=== PATIENT | female | born 2000 | race Caucasian/White ===

== ENCOUNTER → 2024-07-29 | Outpatient (CLI) | payer OTHER, SELFPAY ==
[2024-07-29 16:41] LABS: Basophils # (Auto) 0.1 Thou/mm3 (0.0-0.2); Basophils % (Auto) 1 % (0-2.5); Eosinophils # (Auto) 0.2 Thou/mm3 (0.0-0.5); Eosinophils % (Auto) 2 % (0-10); Hematocrit 37.4 % (36.0-46.0); Hemoglobin 12.5 g/dL (12.0-16.0); Immature Granulocytes % (Auto) 0 % (0-0); Immature Granulocytes Auto 0.03 Thou/mm3 (0.00-0.00); Lymphocytes # (Auto) 3.3 Thou/mm3 (1.0-4.8); Lymphocytes % (Auto) 33 % (10-50); Mean Corpuscular HGB Conc 33.4 g/dl (31.0-37.0); Mean Corpuscular Hemoglobin 27.9 pg (25.0-35.0); Mean Corpuscular Volume 84 fL (80-100); Monocytes # (Auto) 0.5 Thou/mm3 (0.0-0.8); Monocytes % (Auto) 5 % (0-12); Neutrophils # (Auto) 5.8 Thou/mm3 (1.8-7.7); Neutrophils % (Auto) 58 % (37-80); Nucleated Red Blood Cell % 0 /100 WBC (0); Platelet Count 583 Thou/mm3 (140-440); Red Blood Count 4.48 Miln/mm3 (4.00-5.20)
[2024-07-29 16:57] LABS: Glucose Estimated Average 97 mg/dL (80-131)
[2024-07-29 17:02] LABS: Follicle Stimulating Hormone < 0.30 mIU/mL (See Note)
[2024-07-29 17:10] LABS: Alanine Aminotransferase 17 U/L (10-49); Albumin, Serum 4.5 gm/dL (3.5-5.0); Albumin/Globulin Ratio 1.7 (1.2-2.2); Alkaline Phosphatase 84 U/L (46-116); Anion Gap 9 (7-16); Aspartate Amino Transferase 19 U/L (0-34); BUN/Creatinine Ratio 18 Ratio (12-20); Beta HCG,Quantitative < 1 mIU/mL (<5.0); Bilirubin,Total 0.4 mg/dL (0.3-1.2); Blood Urea Nitrogen 11 mg/dL (9-23); Calcium 9.9 mg/dL (8.3-10.6); Calcium (Corrected) 9.9 mg/dL (8.5-10.1); Carbon Dioxide 25.2 mMol/L (20.0-31.0); Chloride 106 mMol/L (98-107); Creatinine (Component) 0.6 mg/dL (0.6-1.3); Free T4 (Free Thyroxine) 1.26 ng/dL (0.89-1.76); Globulin 2.7 gm/dL (2.3-3.5); Glucose 104 mg/dL (74-106); Osmolality,Calculated 278 (275-295); Potassium 4.4 mMol/L (3.4-5.1); Sodium 140 mMol/L (136-145); Thyroid Stimulating Hormone 1.55 uIU/mL (0.55-4.78); Total Protein 7.2 gm/dL (5.7-8.2); eGFR > 60 See Note
[2024-08-11 06:40] LABS: DHEA Sulfate* 28 mcg/dL (18-391); Estrogen, Total, Serum* 50 pg/mL; Immunoglobulin A 138 mg/dL (47-310); Luteinizing Hormone* <0.2 mIU/mL; Progesterone,LC/MS* <0.1 ng/mL; Prolactin* 14.8 ng/mL; Testosterone, Free,Dialysis 0.2 pg/mL (0.1-6.4); Testosterone, Total, Dialysis 6 ng/dL (2-45); tTG Ab, IgA <1.0 U/mL
== END | disposition home or self-care (01) ==
LOC: COPL 14:32
PROVIDERS: PCP Nurse Practitioner Family; Referring Provider Specialist; Visit Provider Specialist
DX: E28.2 Polycystic ovarian syndrome (principal); R10.9 Unspecified abdominal pain
CPT/HCPCS: 36415; 80053; 82627; 82672; 82784; 83001; 83002; 83036; 84144; 84146; 84402; 84403; 84439; 84443; 84702; 85025; 86364

== ENCOUNTER 2024-09-29 08:45 | Day surgery (SDC) | payer OTHER, SELFPAY ==
--- NOTE | 2024-09-25 19:14 | ESHP_ITS ---
RE: BARBARA MESSER : 2000 DATE OF ADMISSION: 09/29/2024 HISTORY OF PRESENT ILLNESS: This is a 24-year-old, 0, with chronic abdominal and pelvic pain who presents for diagnostic laparoscopy to rule out endometriosis. ALLERGIES: SULFA AND STEROIDS. MEDICATIONS: 1. Buspirone 5 mg one p.o. daily. 2. Quetiapine 25 mg one p.o. daily. 3. Isibloom, control pill 1 p.o. daily. 4. Clonazepam 0.5 mg one p.o. daily p.r.n. anxiety. 5. Paroxetine 40 mg one p.o. daily. PAST MEDICAL HISTORY: Morbid obesity, borderline chronic hypertension, irritable bowel syndrome. SOCIAL HISTORY: Denies any alcohol, drug use, or smoking. PAST SURGICAL HISTORY: Colonoscopy, EGD. FAMILY HISTORY: Denies. REVIEW OF SYSTEMS: She denies any chest pain, palpitations, cough, fever, shortness of breath, or lower extremity pain. PHYSICAL EXAMINATION: Vital Signs: Blood pressure 150/90, heart rate 88, respirations 18, temperature 98.6. HEENT: Oropharynx and sclerae are clear. Lungs: Clear to auscultation bilaterally. Heart: Regular rate and rhythm. Abdomen: No scars noted. Nontender. Extremities: Nontender. Skin: No gross rashes or lesion. Neurologic: No focal deficit. ASSESSMENT AND PLAN: Chronic pelvic pain. Plan diagnostic laparoscopy. Possible fulguration of endometriosis. Informed consent was obtained. The patient was made aware of the risks, complications, alternatives, and benefits of the proposed procedure and she agrees. She is aware of the risk of injury to bowel, bladder, adjacent organs, blood clots in the deep veins of the legs and lungs, anesthesia complications, reoperation to repair injury to internal organs, injury to the vessels to the abdominal wall, hematoma, abscess, wound infection, wound dehiscence, pelvic infection, reoperation to repair injury to internal organs, anesthesia complications, the possibility that a laparotomy needs to be performed to complete the procedure or control bleeding, and the possibility the procedure is unable to be completed due to technical difficulties or severe adhesions. DT: 17:57:36 TT: 19:12:00 Ref: [id number] - TID: [id number] [facility]
[2024-09-28 08:14] VITALS: BMI 44.9
[2024-09-28 09:23] LABS: Basophils # (Auto) 0.1 Thou/mm3 (0.0-0.2); Basophils % (Auto) 1 % (0-2.5); Eosinophils # (Auto) 0.4 Thou/mm3 (0.0-0.5); Eosinophils % (Auto) 4 % (0-10); Hematocrit 39.2 % (36.0-46.0); Hemoglobin 12.8 g/dL (12.0-16.0); Immature Granulocytes % (Auto) 0 % (0-0); Immature Granulocytes Auto 0.02 Thou/mm3 (0.00-0.00); Lymphocytes # (Auto) 2.1 Thou/mm3 (1.0-4.8); Lymphocytes % (Auto) 22 % (10-50); Mean Corpuscular HGB Conc 32.7 g/dl (31.0-37.0); Mean Corpuscular Hemoglobin 27.9 pg (25.0-35.0); Mean Corpuscular Volume 86 fL (80-100); Monocytes # (Auto) 0.4 Thou/mm3 (0.0-0.8); Monocytes % (Auto) 4 % (0-12); Neutrophils # (Auto) 6.6 Thou/mm3 (1.8-7.7); Neutrophils % (Auto) 69 % (37-80); Nucleated Red Blood Cell % 0 /100 WBC (0); Platelet Count 488 Thou/mm3 (140-440); RDW Standard Deviation 42.6 fL (36.4-46.3); Red Blood Count 4.58 Miln/mm3 (4.00-5.20); White Blood Count 9.6 Thou/mm3 (3.6-11.0)
[2024-09-28 09:30] LABS: Prothrombin Time 10.6 Seconds (9.0-12.2)
[2024-09-28 09:38] LABS: Alanine Aminotransferase 16 U/L (10-49); Albumin, Serum 4.4 gm/dL (3.5-5.0); Albumin/Globulin Ratio 1.5 (1.2-2.2); Alkaline Phosphatase 78 U/L (46-116); Anion Gap 11 (7-16); Aspartate Amino Transferase 16 U/L (0-34); BUN/Creatinine Ratio 18 Ratio (12-20); Beta HCG,Quantitative < 1 mIU/mL (<5.0); Bilirubin,Total 0.5 mg/dL (0.3-1.2); Blood Urea Nitrogen 11 mg/dL (9-23); Calcium 8.9 mg/dL (8.3-10.6); Calcium (Corrected) 8.9 mg/dL (8.5-10.1); Carbon Dioxide 23.1 mMol/L (20.0-31.0); Chloride 107 mMol/L (98-107); Creatinine (Component) 0.6 mg/dL (0.6-1.3); Estimated Creatinine Clearance 183.4 mL/min (>60); Glucose 122 mg/dL (74-106); Osmolality,Calculated 281 (275-295); Potassium 3.9 mMol/L (3.4-5.1); Sodium 141 mMol/L (136-145); Total Protein 7.4 gm/dL (5.7-8.2); eGFR > 60 See Note
[2024-09-29] VITALS (8 sets, daily range): BP systolic 120–156; BP diastolic 65–112; PULSE 78–103; RESP 15–20; TEMP 36.1–36.6; O2SAT 94–100; BMI 46.1
[2024-09-29] MEDS: MIDAZOLAM INJ 1 MG/ML VIAL 2 ML 2 MG IV (10:43)
--- NOTE | 2024-09-29 11:49 | SUR.PHASEI ---
pt arrived to PACU via gurney drowsy but arouses to voice, breathing unlabored, dressing to abdomen clean, dry, and intact, peripad in place, clean and dry
--- NOTE | 2024-09-29 11:52 | PD.GYNPROC ---
Operative Note - CAPTAIN'S ASSISTANT Procedure Date of procedure: 09/29/24 Procedure Performed: Diagnostic laparoscopy Indication: Chronic pelvic pain Pre-Op diagnosis: Chronic pelvic pain Post-Op diagnosis: Chronic pelvic pain Dolichocolon Anesthesia type: General Specimen: none Estimated blood loss (ml): 5 Findings: Normal-appearing uterus ovaries and fallopian tubes. No evidence of endometriosis. No pelvic adhesions. Large intestine appeared abnormally long, tortuous and distended. Complications: none Narrative: After proper informed consent the patient was taken to the operating room where she underwent induction of general anesthesia in the supine position on the operating room table. She was then placed in the dorsal lithotomy position she was prepped and draped in the usual sterile fashion. A timeout was performed. A 5 mm incision was made in the umbilical fold. With tenting up of the abdomen the Veress needle was inserted. Saline confirmed intra-abdominal placement. The Veress needle was then removed. The 5 mm trocar was inserted with tenting up to the abdomen. The laparoscope connected to the video camera was then utilized to visualize the pelvis. A second incision was made in the midline. This 5 mm incision was made 2 cm above symphysis pubis. Through this 5 mm incision a 5 mm trocar was inserted under direct visualization a laparoscope. Using the blunt probe the pelvic organs were manipulated to expose the uterus and fallopian tubes and ovaries. Clear views of these organs as well as the anterior and posterior cul-de-sac were obtained. A photographic record was obtained of the pelvis and abdomen and the above findings noted. The the carbon dioxide was removed from the peritoneal cavity and the trocars were removed. Marcaine was infiltrated around each incision and the incisions were closed with 4-0 Monocryl and covered with Dermabond. She was reversed from general anesthesia in the supine position and transferred to the recovery room room in stable condition. I discussed with the patient's mother the nature of her condition intraoperative findings expectation for recovery all questions answered Surgical staff Operation Date: 09/29/24 11:00 <No data on this case meets the specified criteria> Michael Pascual's DERICK Chance Anesthesia Diagnosis Discharge Diagnosis (1) Chronic pelvic pain in female: Status: Acute (2) Dolichocolon: Status: Acute Problem List Completed Was Problem List Reviewed/Reconciled?: Yes
[2024-09-29] MEDS: fentaNYL CIT INJ 50 mCg/ML AMP 2ML 25 MCG IV (12:05)
--- NOTE | 2024-09-29 12:10 | SUR.PHASEI ---
pt able to tolerate oral fluids without difficulty swallowing or n/v
--- NOTE | 2024-09-29 12:12 | SUR.PHASEII ---
Pt awake, alert, able to follow commands, breathing unlabored, dressing to abdomen clean, dry, and intact, report to Zohra CINTRON
== END 2024-09-29 12:40 | disposition home or self-care (01) ==
PROVIDERS: PCP Family Medicine; Referring Provider Specialist; Visit Provider Specialist
PROC: (CPT 49320; principal; 2024-09-29 10:45)
DX: R10.2 Pelvic and perineal pain (principal); G89.29 Other chronic pain; Q43.8 Other specified congenital malformations of intestine; E66.01 Morbid (severe) obesity due to excess calories; I10 Essential (primary) hypertension; Z68.42 Body mass index [BMI] 45.0-49.9, adult; Z79.899 Other long term (current) drug therapy; Z79.3 Long term (current) use of hormonal contraceptives; Z88.2 Allergy status to sulfonamides; Z88.8 Allergy status to other drugs, medicaments and biological substances
CPT/HCPCS: 49320; 36415; 80053; 84702; 85025; 85610; 85730; 86850; 86900; 86901; A4217; A4649; J0131; J0690; J2250; J2405; J2704; J2765; J3010; J3490

== ENCOUNTER → 2024-12-03 | Outpatient (CLI) | payer OTHER, SELFPAY ==
[2024-12-03 08:22] LABS: Collection Type, Urine Clean Catch
[2024-12-03 08:56] LABS: Basophils # (Auto) 0.1 Thou/mm3 (0.0-0.2); Basophils % (Auto) 1 % (0-2.5); Eosinophils # (Auto) 0.3 Thou/mm3 (0.0-0.5); Eosinophils % (Auto) 3 % (0-10); Hematocrit 38.2 % (36.0-46.0); Hemoglobin 12.6 g/dL (12.0-16.0); Immature Granulocytes Auto 0.02 Thou/mm3 (0.00-0.00); Lymphocytes # (Auto) 2.4 Thou/mm3 (1.0-4.8); Lymphocytes % (Auto) 30 % (10-50); Mean Corpuscular HGB Conc 33.0 g/dl (31.0-37.0); Mean Corpuscular Hemoglobin 28.2 pg (25.0-35.0); Mean Corpuscular Volume 86 fL (80-100); Monocytes # (Auto) 0.4 Thou/mm3 (0.0-0.8); Monocytes % (Auto) 5 % (0-12); Neutrophils # (Auto) 4.9 Thou/mm3 (1.8-7.7); Neutrophils % (Auto) 61 % (37-80); Nucleated Red Blood Cell # 0.00 Thou/mm3 (0.00-0.00); Nucleated Red Blood Cell % 0 /100 WBC (0); Platelet Count 490 Thou/mm3 (140-440); RDW Standard Deviation 42.4 fL (36.4-46.3); Red Blood Count 4.47 Miln/mm3 (4.00-5.20); White Blood Count 8.1 Thou/mm3 (3.6-11.0)
[2024-12-03 09:16] LABS: Alanine Aminotransferase 19 U/L (10-49); Albumin, Serum 4.3 gm/dL (3.5-5.0); Albumin/Globulin Ratio 1.6 (1.2-2.2); Alkaline Phosphatase 69 U/L (46-116); Anion Gap 13 (7-16); Aspartate Amino Transferase 18 U/L (0-34); BUN/Creatinine Ratio 13 Ratio (12-20); Bilirubin,Total 0.6 mg/dL (0.3-1.2); Blood Urea Nitrogen 8 mg/dL (9-23); Calcium 9.0 mg/dL (8.3-10.6); Calcium (Corrected) 9.0 mg/dL (8.5-10.1); Carbon Dioxide 19.7 mMol/L (20.0-31.0); Cardiac Risk Estimate 4.6 RATIO (3.7-5.6); Chloride 107 mMol/L (98-107); Cholesterol 213 mg/dL (132-200); Creatinine (Component) 0.6 mg/dL (0.6-1.3); Globulin 2.7 gm/dL (2.3-3.5); Glucose 97 mg/dL (74-106); HDL Cholesterol 46 mg/dL (40-60); LDL Cholesterol,Calculated 116 mg/dL (0-130); Osmolality,Calculated 277 (275-295); Potassium 4.2 mMol/L (3.4-5.1); Sodium 140 mMol/L (136-145); Total Protein 7.0 gm/dL (5.7-8.2); Triglycerides 255 mg/dL (30-150); eGFR > 60 See Note
[2024-12-03 09:22] LABS: Bacteria,Urine 1+; Bilirubin,Urine Negative (Negative); Blood,Urine 1+ (Negative); Clarity,Urine Turbid (Clear/Hazy); Color,Urine Yellow (Lt Yel-Yel); Glucose, Urine Negative (Negative); Ketones,Urine Negative (Negative); Leukocyte Esterase,Urine Negative (Negative); Nitrite,Urine Negative (Negative); PH,Urine 6.0 (5.0-7.0); Protein,Urine Negative (Neg - Trace); RBC,Urine 3 /hpf (0-3); Specific Gravity,Urine 1.022 (1.001-1.035); Squamous Epithelial Cell,Urine 24 /hpf (0-5); Urobilinogen,Urine Negative mg/dL (0.0-1.0); WBC,Urine 4 /hpf (0-5)
[2024-12-03 09:24] LABS: Creatinine MALB Rnd Ur 161 mg/dL (30-125); Microalbumin Creat Ratio 7 mg/gCrea (<30); Microalbumin, Random Urine 12 mg/L (0-300)
[2024-12-03 09:24] LABS: Folate 16.08 ng/mL (>5.38); Vitamin B12 247 pg/mL (211-911); Vitamin D 25 Hydroxy Total 36.4 ng/mL (7.3-40.2)
[2024-12-08 03:05] LABS: Cardiolipin Ab (IgA) <2.0 APL-U/mL; Cardiolipin Ab (IgG) <2.0 GPL-U/mL; Sjogren's antibody (SS-A) <1.0 NEG AI (<1.0 NEGATIVE)
[2024-12-08 06:57] LABS: ANA Pattern NUCLEAR, NUCLEOLAR; ANA Screen, IFA POSITIVE (NEGATIVE); ANA Titer 1:320 titer; Cardiolipin Ab (IgM) <2.0 MPL-U/mL; Complement Component C3* 221 mg/dL (83-193); Complement Component C4c* 39 mg/dL (15-57); DNA (ds) Antibody* <1 IU/mL; Scl-70 Antibody* <1.0 NEG AI (<1.0 NEGATIVE); Sjogren's Antibody (SS-B) <1.0 NEG AI (<1.0 NEGATIVE); Thyroid Peroxidase Antibodies* <1 IU/mL (<9)
== END | disposition home or self-care (01) ==
LOC: COPL 06:58
PROVIDERS: PCP Student in an Organized Health Care Education/Training Program; Referring Provider Student in an Organized Health Care Education/Training Program; Visit Provider Student in an Organized Health Care Education/Training Program
DX: E78.2 Mixed hyperlipidemia (principal); M25.50 Pain in unspecified joint; R25.2 Cramp and spasm; Z79.899 Other long term (current) drug therapy
CPT/HCPCS: 36415; 80053; 80061; 81001; 82043; 82306; 82570; 82607; 82746; 85025; 86038; 86147; 86160; 86225; 86235; 86376

== ENCOUNTER → 2024-12-15 | Outpatient (CLI) | payer OTHER, SELFPAY ==
[2024-12-15 09:04] LABS: Glucose Estimated Average 108 mg/dL (80-131); Hemoglobin A1C 5.4 % Hgb (4.8-6.0)
[2024-12-15 09:28] LABS: C-Reactive Protein 1.2 mg/dL (0.0-0.9)
[2024-12-15 09:31] LABS: Sed Rate (ESR) 27 mm/hr (0-20)
== END | disposition home or self-care (01) ==
LOC: COPL 06:52
PROVIDERS: PCP Student in an Organized Health Care Education/Training Program; Referring Provider Student in an Organized Health Care Education/Training Program; Visit Provider Student in an Organized Health Care Education/Training Program
DX: R76.0 Raised antibody titer (principal); Z84.89 Family history of other specified conditions
CPT/HCPCS: 36415; 83036; 85652; 86140